=== PATIENT | female | born 1990 | race Caucasian/White ===

== ENCOUNTER 2017-10-29 22:23 | Observation (INO) | payer OTHER ==
[2017-10-29] MEDS ORDERED: ONDANSETRON 4 MG/2 ML VIAL ONE (22:59)
[2017-10-29] MEDS ORDERED: NA CHLORIDE 0.9% 1,000 ML ONE (22:59)
[2017-10-29 23:29] LABS: Absolute Lymphocytes (CBC) 0.6 K/uL (0.7-4.9); Absolute Monocytes 0.4 K/uL (0.1-1.3); Basophils % 0.1 % (0-1.3); Eosinophils % 0.7 % (0-4.4); Hematocrit 28.8 % (36.0-45.0); Lymphocytes % 6.9 % (15.3-44.8); MCH 29.9 pg (27.0-35.0); MCV 83.9 fL (80-100); MPV 7.1 fL (7.6-11.3); Monocytes % 4.8 % (3.3-12.3); RBC Red Blood Cell Count 3.43 M/uL (3.86-4.86)
[2017-10-29 23:44] LABS: Protime INR 1.17
[2017-10-29 23:48] LABS: Bicarbonate 20 mEq/L (21-31); Glucose Level 115 mg/dL (65-120); Lipase 28 U/L (22-51); Potassium 3.2 mEq/L (3.6-5.0); Sodium Level 133 mEq/L (135-145)
[2017-10-29 23:56] LABS: ALT/SGPT 15 IU/L (10-60); AST/SGOT 16 IU/L (10-42); Albumin 4.4 g/dL (3.2-5.5); Alkaline Phosphatase 44 IU/L (42-121); Amylase Level 30 U/L (28-100); BUN Blood Urea Nitrogen 14 mg/dL (6-20); Bilirubin Direct 0.2 mg/dL (0-0.2); Creatine Phosphokinase 47 IU/L (22-269); Magnesium 1.6 mg/dL (1.8-2.5); Protein, Total 7.3 g/dL (6.0-8.3)
[2017-10-30 00:16] LABS: Bilirubin Total 5.2 mg/dL (0.3-1.2)
[2017-10-30 00:17] LABS: Urine Blood NEGATIVE (NEG); Urine Glucose NEGATIVE (NEG); Urine Protein NEGATIVE (NEG); Urine Specific Gravity 1.015 (1.005-1.030); Urine pH 5.5 (5.0-7.0)
[2017-10-30 00:17] LABS: Urine Specific Gravity 1.015 (1.005-1.030)
[2017-10-30 00:39] LABS: Urine Bacteria <20 /HPF (<20); Urine Culture Reflex Order NOT NEEDED; Urine RBC <5 /HPF (NONE SEEN)
[2017-10-30 00:51] LABS: Blood Morphology Comment NOT SEEN (NOT SEEN); Platelet Estimate ADEQ; Urine White Blood Cell Casts OK
[2017-10-30] MEDS ORDERED: MAGNESIUM SULFATE 1 gm IVPB 1 GM/100 ML BAG IV ONE (00:54)
[2017-10-30] MEDS ORDERED: POTASSIUM 25 MEQ EFFERV TAB ONE (00:54)
[2017-10-30] MEDS ORDERED: ONDANSETRON 4 MG/2 ML VIAL ONE (01:07)
--- NOTE | 2017-10-30 02:30 | EDPHYS ---
Physician Documentation [facility] Name: Lala Dunbar Age: 27 yrs Sex: Female : 1990 Arrival Date: 10/29/2017 Time: 22:26 Bed 2 Private MD: Dex Hanleyama ED Physician Jeffery Duckworth HPI: 10/29 23:07 This 27 yrs old Female presents to ER via Ambulatory with complaints of cachorro Abdominal Pain, Fever, Nausea/Vomiting/Diarrhea, Palpitations, Shortness Of Breath. 23:07 The patient reports fever, not measured (subjective). Onset: The symptoms/episode cachorro began/occurred last week. Modifying factors: there are no obvious modifying factors. Associated signs and symptoms: Pertinent positives: abdominal pain, cough, nausea, shortness of breath, vomiting. Severity of symptoms: At their worst the symptoms were moderate in the emergency department the symptoms are unchanged. The patient has not experienced similar symptoms in the past. 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 - Social history:: Smoking status: Patient/guardian denies using tobacco. - Ebola Screening: : Patient negative for fever greater than or equal to 101.5 degrees Fahrenheit, and additional compatible Ebola Virus Disease symptoms Patient denies exposure to infectious person Patient denies travel to an Ebola-affected area in the 21 days before illness onset. - Family history:: not pertinent. ROS: 23:07 Constitutional: Negative for fever, chills, and weight loss, Eyes: Negative for injury, cachorro pain, redness, and discharge, ENT: Negative for injury, pain, and discharge, Neck: Negative for injury, pain, and swelling, Cardiovascular: Negative for chest pain, palpitations, and edema, Respiratory: Negative for shortness of breath, cough, wheezing, and pleuritic chest pain, Back: Negative for injury and pain, : Negative for injury, bleeding, discharge, and swelling, MS/Extremity: Negative for injury and deformity, Skin: Negative for injury, rash, and discoloration, Neuro: Negative for headache, weakness, numbness, tingling, and seizure, Psych: Negative for depression, anxiety, suicide ideation, homicidal ideation, and hallucinations, Allergy/Immunology: Negative for hives, rash, and allergies, Endocrine: Negative for neck swelling, polydipsia, polyuria, polyphagia, and marked weight changes, Hematologic/Lymphatic: Negative for swollen nodes, abnormal bleeding, and unusual bruising. 23:07 Abdomen/GI: Positive for abdominal pain, of the right upper quadrant, left upper quadrant and abdomen diffusely. Exam: 23:07 Constitutional: This is a well developed, well nourished patient who is awake, alert, cachorro and in no acute distress. Head/Face: Normocephalic, atraumatic. Eyes: Pupils equal round and reactive to light, extra-ocular motions intact. Lids and lashes normal. Conjunctiva and sclera are non-icteric and not injected. Cornea within normal limits. Periorbital areas with no swelling, redness, or edema. ENT: Nares patent. No nasal discharge, no septal abnormalities noted. Tympanic membranes are normal and external auditory canals are clear. Oropharynx with no redness, swelling, or masses, exudates, or evidence of obstruction, uvula midline. Mucous membranes moist. Neck: Trachea midline, no thyromegaly or masses palpated, and no cervical lymphadenopathy. Supple, full range of motion without nuchal rigidity, or vertebral point tenderness. No Meningismus. Chest/axilla: Normal chest wall appearance and motion. Nontender with no deformity. No lesions are appreciated. Cardiovascular: Regular rate and rhythm with a normal S1 and S2. No gallops, murmurs, or rubs. Normal PMI, no JVD. No pulse deficits. Abdomen/GI: Soft, non-tender, with normal bowel sounds. No distension or tympany. No guarding or rebound. No evidence of tenderness throughout. Back: No spinal tenderness. No costovertebral tenderness. Full range of motion. Pelvic Exam: Normal external genitalia. Speculum exam with closed cervical os, no discharge or bleeding noted. Bimanual exam with normal adnexa, no adnexal or cervical motion tenderness. Normal uterus. 10/30 00:53 Musculoskeletal/extremity: DVT Exam: No signs of deep vein thrombosis. no pain, no cachorro swelling, no tenderness, negative Homans' sign noted on exam, no appreciated bluish discoloration, no erythema, no increased warmth. Vital Signs: 10/29 22:43 Weight 63.5 kg (R); Height 5 ft. 4 in. (162.56 cm) (R); Pain 7/10; fc 22:44 BP 110 / 73; Pulse 104; Resp 24; Temp 98.9(O); Pulse Ox 100% on R/A; fc 23:00 BP 126 / 91; Pulse 101; Resp 20; Pulse Ox 99% ; bp 23:23 BP 111 / 70; Pulse 98; Resp 16; Pulse Ox 100% on R/A; rv 10/30 00:03 BP 105 / 67; Pulse 94; Resp 17; Pulse Ox 98% ; bp 01:00 BP 103 / 56; Pulse 90; Resp 16; Pulse Ox 99% on R/A; bp 02:00 BP 101 / 54; Pulse 87; Resp 17; Pulse Ox 98% ; bp 03:15 BP 103 / 57; Pulse 101; Resp 15; Pulse Ox 99% ; rv 10/29 22:43 Body Mass Index 24.03 (63.50 kg, 162.56 cm) fc MDM: 10/29 22:57 Patient medically screened. [facility] 23:09 Data reviewed: vital signs, nurses notes, lab test result(s), EKG, radiologic studies, [facility] plain films. 10/29 22:59 Order name: Amylase, Serum; Complete Time: 00:46 bp 10/29 22:59 Order name: Basic Metabolic Panel; Complete Time: 00:46 bp 10/29 22:59 Order name: CBC with Diff; Complete Time: 01:16 bp 10/29 22:59 Order name: Creatinine for Radiology; Complete Time: 00:46 bp 10/29 22:59 Order name: Hepatic Function; Complete Time: 00:46 bp 10/29 22:59 Order name: Lipase; Complete Time: 00:46 bp 10/29 22:59 Order name: Urine Microscopic Only; Complete Time: 00:46 bp 10/29 23:05 Order name: BNP; Complete Time: 00:46 cachorro 10/29 23:05 Order name: PT-INR; Complete Time: 00:46 cachorro 10/29 23:05 Order name: Ptt, Activated; Complete Time: 00:46 cachorro 10/29 23:05 Order name: Troponin (emerg Dept Use Only); Complete Time: 00:46 cachorro 10/29 22:59 Order name: CT Abd/Pelvis - W/Contrast 10/29 23:05 Order name: XRAY Chest (1 view) [facility] 10/29 23:06 Order name: Test, Serum; Complete Time: 00:46 cachorro 10/29 23:15 Order name: Type And Screen; Complete Time: 00:46 cc 10/29 23:23 Order name: D-Dimer; Complete Time: 00:46 EDMS 10/29 23:24 Order name: Creatine Phosphokinase; Complete Time: 00:46 EDMS 10/29 23:24 Order name: CKMB Creatine Kinase MB; Complete Time: 00:46 EDMS 10/29 23:24 Order name: Magnesium; Complete Time: 00:46 EDMS 10/29 23:57 Order name: Urine Dipstick--Ancillary (enter results); Complete Time: 00:46 ms 10/29 23:58 Order name: Urine --Ancillary (enter results); Complete Time: 00:46 ms 10/30 00:51 Order name: CBC Smear Scan; Complete Time: 01:16 EDMS 10/30 01:15 Order name: CT Chest For PE Angio [facility] 10/30 02:18 Order name: LDH [facility] 10/30 02:18 Order name: Uric Acid [facility] 10/30 03:22 Order name: ABO/RH no charge EDAZ 10/29 22:59 Order name: IV Saline Lock; Complete Time: 23:19 bp 10/29 22:59 Order name: Labs collected and sent; Complete Time: 23:19 bp 10/29 22:59 Order name: Urine Dipstick-Ancillary (obtain specimen); Complete Time: 00:05 bp 10/29 23:05 Order name: EKG; Complete Time: 23:06 cachorro 10/29 23:05 Order name: Cardiac monitoring; Complete Time: 23:17 cachorro 10/29 23:05 Order name: EKG - Nurse/Tech; Complete Time: 23:30 cachorro 10/29 23:05 Order name: O2 Per Protocol; Complete Time: 23:17 cachorro 10/29 23:05 Order name: O2 Sat Monitoring; Complete Time: 23:17 cachorro 10/30 02:34 Order name: CONS Physician Consult EDMS Administered Medications: 23:07 Drug: NS 0.9% 1000 ml Route: IV; Rate: 1 bolus; Site: right antecubital; bp 10/30 03:19 Follow up: IV Status: Completed infusion rv 10/29 23:07 Drug: Zofran 4 mg Route: IVP; Site: right antecubital; bp 23:32 Follow up: Response: Nausea is decreased bp 10/30 01:08 Drug: Zofran 4 mg Route: IVP; Site: right antecubital; bp 03:17 Follow up: Response: No adverse reaction rv 01:25 Drug: Magnesium Sulfate 1 grams Route: IVPB; Infused Over: 1 hrs; Site: right forearm; rv 03:17 Follow up: IV Status: Completed infusion rv 01:26 Drug: Potassium Effervescent Tablet 25 mEq Route: PO; rv 03:17 Follow up: Response: No adverse reaction rv Disposition: 10/30/17 02:29 Hospitalization ordered by Jacoby Spence for Observation. Preliminary diagnosis are Abdominal tenderness - mesenteric lymphadenopathy 10.4 cm, lymphoma, Splenomegaly, not elsewhere classified, Hypomagnesemia, Hypokalemia. - Bed requested for Telemetry/MedSurg (Inpatient). - Status is Observation. bp - Condition is Stable. - Problem is new. - Symptoms have improved. UTI on Admission? No Signatures: Dispatcher [employer] EDAZ Lisa Ramsey RN RN Jeffery Hines MD MD cha Chretien, Felicia RN RN Andriy Buckley RN RN bp Vicente, Ronaldo RN RN rv Corrections: (The following items were deleted from the chart) 10/29 23:05 22:59 Urine Test ordered. bp [facility] 23:23 23:06 CKMB+C.LAB.BRZ ordered. EDAZ EDMS 23:23 23:06 CREATINE PHOSPHOKINASE+C.LAB.BRZ ordered. EDAZ EDMS 23:23 23:06 MAGNESIUM+C.LAB.BRZ ordered. EDAZ EDMS 23:23 23:06 D-DIMER+COAG.LAB.BRZ ordered. EDAZ EDMS 10/30 02:45 02:29 Hospitalization Ordered by Jacoby Spence MD for Observation. Preliminary diagnosis is Abdominal tenderness - mesenteric lymphadenopathy 10.4 cm, lymphoma; Splenomegaly, not elsewhere classified; Hypomagnesemia; Hypokalemia. Bed requested for Telemetry/MedSurg (Inpatient). Status is Observation. Condition is Stable. Problem is new. Symptoms have improved. UTI on Admission? No. cachorro 04:07 02:45 10/30/2017 02:29 Hospitalization Ordered by Jacoby Spence MD for Observation. bp Preliminary diagnosis is Abdominal tenderness - mesenteric lymphadenopathy 10.4 cm, lymphoma; Splenomegaly, not elsewhere classified; Hypomagnesemia; Hypokalemia. Bed requested for Telemetry/MedSurg (Inpatient). Status is Observation. Condition is Stable. Problem is new. Symptoms have improved. UTI on Admission? No. mw
--- NOTE | 2017-10-30 02:30 | ER ---
Nurse's Notes [facility] Name: Lala Dunbar Age: 27 yrs Sex: Female : 1990 Arrival Date: 10/29/2017 Time: 22:26 Bed 2 Private MD: Ute Hanley Diagnosis: Abdominal tenderness-mesenteric lymphadenopathy 10.4 cm, lymphoma;Splenomegaly, not elsewhere classified;Hypomagnesemia;Hypokalemia Presentation: 10/29 22:39 Presenting complaint: Patient states: that she is having shortness of breath, nausea, fc vomiting and diarrhea.. Also having upper abd pain that she has had on and off x 2 weeks. Transition of care: patient was not received from another setting of care. Onset of symptoms was October 14, 2017. Risk Assessment: Do you want to hurt yourself or someone else? Patient reports no desire to harm self or others. Initial Sepsis Screen:. Care prior to arrival: None. 22:39 Method Of Arrival: Ambulatory 22:39 Acuity: CHANDLER 3 fc 10/30 03:15 Initial Sepsis Screen: Does the patient meet any 2 criteria? No. Patient's initial rv sepsis screen is negative. Does the patient have a suspected source of infection? No. Patient's initial sepsis screen is negative. Triage Assessment: 10/29 22:45 General: Appears uncomfortable, slender, well groomed, Behavior is calm, cooperative, fc appropriate for age. Pain: Complains of pain in right upper quadrant and left upper quadrant Quality of pain is described as aching, pressure, sharp, Pain began 2 weeks ago Is episodic. EENT: No deficits noted. Neuro: Level of Consciousness is awake, alert, obeys commands, Oriented to person, place, time, situation. Cardiovascular: No deficits noted. Respiratory: Reports shortness of breath at rest Airway is patent Respiratory effort is even, unlabored, Respiratory pattern is regular, symmetrical, Breath sounds are clear bilaterally. Onset: The symptoms/episode began/occurred gradually. GI: Abdomen is flat, Reports upper abdominal pain, diarrhea, nausea, vomiting. : No deficits noted. Derm: Skin is pink, warm \T\ dry. Musculoskeletal: Circulation, motion, and sensation intact. Capillary refill < 3 seconds, Range of motion: intact in all extremities. 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 - Social history:: Smoking status: Patient/guardian denies using tobacco. - Ebola Screening: : Patient negative for fever greater than or equal to 101.5 degrees Fahrenheit, and additional compatible Ebola Virus Disease symptoms Patient denies exposure to infectious person Patient denies travel to an Ebola-affected area in the 21 days before illness onset. - Family history:: not pertinent. Screenin:00 Abuse screen: Denies threats or abuse. Denies injuries from another. Nutritional bp screening: No deficits noted. Tuberculosis screening: No symptoms or risk factors identified. Fall Risk None identified. Assessment: 23:00 General: Appears in no apparent distress. uncomfortable, slender, Behavior is calm, bp cooperative, appropriate for age. Pain: Complains of pain in abdomen. Neuro: Level of Consciousness is awake, alert, obeys commands, Oriented to person, place, time, situation, Appropriate for age. Cardiovascular: Rhythm is sinus tachycardia. Respiratory: Airway is patent Respiratory effort is even, unlabored, Respiratory pattern is regular, symmetrical. GI: Bowel sounds present X 4 quads. Abd is soft X 4 quads Abdomen is tender to palpation X 4 quads. Reports diarrhea, nausea, vomiting. : No signs and/or symptoms were reported regarding the genitourinary system. EENT: No deficits noted. Derm: No deficits noted. Musculoskeletal: Circulation, motion, and sensation intact. Range of motion: intact in all extremities. 10/30 00:02 Reassessment: PO CONTRAST COMPLETED, CT PENDING. bp 01:08 Reassessment: PT TO CT WITH RELIEF DOCKING MASTER. bp 02:01 Reassessment: ALL CURRENT ORDERS COMPLETED, RESULTS AND DISPO PENDING. bp Vital Signs: 10/29 22:43 Weight 63.5 kg (R); Height 5 ft. 4 in. (162.56 cm) (R); Pain 7/10; fc 22:44 BP 110 / 73; Pulse 104; Resp 24; Temp 98.9(O); Pulse Ox 100% on R/A; fc 23:00 BP 126 / 91; Pulse 101; Resp 20; Pulse Ox 99% ; bp 23:23 BP 111 / 70; Pulse 98; Resp 16; Pulse Ox 100% on R/A; rv 06 00:03 BP 105 / 67; Pulse 94; Resp 17; Pulse Ox 98% ; bp 01:00 BP 103 / 56; Pulse 90; Resp 16; Pulse Ox 99% on R/A; bp 02:00 BP 101 / 54; Pulse 87; Resp 17; Pulse Ox 98% ; bp 03:15 BP 103 / 57; Pulse 101; Resp 15; Pulse Ox 99% ; rv 10/29 22:43 Body Mass Index 24.03 (63.50 kg, 162.56 cm) ED Course: 10/29 22:26 Patient arrived in ED. al2 22:27 Ute Hanley MD is Private Physician. al2 22:41 Triage completed. fc 22:43 Arm band placed on Patient placed in waiting room, Patient notified of wait time. fc 22:49 Andriy Rose, DANISHA is Primary Nurse. bp 22:57 Jeffery Duckworth MD is Attending Physician. cachorro 23:00 Patient has correct armband on for positive identification. Bed in low position. Call bp light in reach. Side rails up X2. Adult w/ patient. 23:04 Initial lab(s) drawn, by mn, sent to lab. Inserted saline lock: 20 gauge in right cc antecubital area, using aseptic technique. Blood collected. 23:14 X-ray completed. Portable x-ray completed in exam room. Patient tolerated procedure kw well. 23:15 XRAY Chest (1 view) In Process Unspecified. EDMS 23:31 EKG done, by ED staff, reviewed by Jeffery Duckworth MD. cc 10/30 00:16 Notified ED physician of a critical lab result(s). total bili of 5.2. fc 01:[address] via wheelchair. 01:27 CT Abd/Pelvis - W/Contrast In Process Unspecified. EDMS 02:27 Jacoby Spence MD is Hospitalizing Provider. cachorro 03:15 No provider procedures requiring assistance completed. Patient admitted, IV remains in rv place. Administered Medications: 10/29 23:07 Drug: NS 0.9% 1000 ml Route: IV; Rate: 1 bolus; Site: right antecubital; bp 10/30 03:19 Follow up: IV Status: Completed infusion rv 10/29 23:07 Drug: Zofran 4 mg Route: IVP; Site: right antecubital; bp 23:32 Follow up: Response: Nausea is decreased bp 10/30 01:08 Drug: Zofran 4 mg Route: IVP; Site: right antecubital; bp 03:17 Follow up: Response: No adverse reaction rv 01:25 Drug: Magnesium Sulfate 1 grams Route: IVPB; Infused Over: 1 hrs; Site: right forearm; rv 03:17 Follow up: IV Status: Completed infusion rv 01:26 Drug: Potassium Effervescent Tablet 25 mEq Route: PO; rv 03:17 Follow up: Response: No adverse reaction rv Outcome: 02:29 Decision to Hospitalize by Provider. cachorro 03:37 Admitted to Med/surg accompanied by tech, family with patient, via wheelchair, room rv 202, with chart, Report called to ANISHA RAMAN 03:37 Condition: stable 03:37 Instructed on the need for admit. 04:07 Patient left the ED. bp Signatures: Dispatcher [employer] EDMS Jeffery Duckworth MD MD cha Jones, Susan sj Chretien, Felicia, RN RN fc Whitley, Kimberlee kw Christian, Chelsea cc Peltier, Brian, RN RN bp Love, Angelica al2 Vicente, Ronaldo, RN RN rv
[2017-10-30 02:32] LABS: Uric Acid 5.3 mg/dL (2.6-8.0)
[2017-10-30] MEDS ORDERED: ACETAMINOPHEN 500 MG TAB PO PRN (02:44)
[2017-10-30] MEDS ORDERED: ONDANSETRON 4 MG/2 ML VIAL IV PRN (02:44)
[2017-10-30] MEDS ORDERED: Morphine 2 MG/2 ML SYR IV PRN (03:21)
[2017-10-30] MEDS: NA CHLORIDE 0.9% 1,000 ML IV SCH ×2 (04:00→16:09)
--- NOTE | 2017-10-30 07:04 | RAD REPORT ---
EXAM DESCRIPTION: CT - Abdomen Pelvis W Contrast - 10/30/2017 6:00 am CLINICAL HISTORY: Abdominal pain, vomiting A preliminary written report was provided at the time of the study, and the report was reviewed prio r to final dictation. COMPARISON: None. TECHNIQUE: Biphasic, helical CT imaging of the abdomen and pelvis was performed following 100 ml non -ionic IV contrast. Oral contrast was given. All CT scans are performed using dose optimization technique as appropriate and may include automated exposure control or mA/KV adjustment according to patient size. FINDINGS: No suspicious findings in the lung bases. Liver is upper normal in size with no focal liver lesion identified. No primary pancreatic process id entifiable. There is splenomegaly to 18 cm craniocaudal dimension. No infarction or focal splenic abn ormality seen. Gallbladder and biliary tree are also without suspicious finding. Symmetric renal function is seen with no hydronephrosis or suspicious renal mass. No pyelonephritis o r acute renal parenchymal process. No urinary bladder abnormality. Uterus shows no suspicious finding s. No left ovarian abnormality. Right ovary contains a 2.5 centimeter cyst. Small quantity of free fl uid in the cul-de-sac is within physiologic limits. A wrapped shirt or leaking ovarian cyst could be an additional possible source. Stomach is well filled by oral contrast. There is a soft tissue attenuation focus in the antrum and d uodenal bulb region is believed to be ingested food rather than a gastric mass. Small bowel is well o pacified with no focal abnormality seen. In the left mid abdomen along the inferior margin of the spl een there is a confluent soft tissue collection suspicious for lymphadenopathy. The well opacified sm all bowel would indicate that this is not a non-opacified collection of small bowel loops. The patien t has additional small mesenteric lymph nodes. No inguinal or pelvic lymphadenopathy. No free air, pneumatosis or focal inflammatory stranding. No hernia or omental thickening. No adre nal abnormality. No suspicious bony findings. IMPRESSION: Splenomegaly to 18 cm with suspected confluent left mid abdomen lymphadenopathy. Additio nal small mesenteric lymph nodes are present. Findings are concerning for lymphoma. Soft tissue filling defect near the gastric antrum is probably ingested food rather than a gastric ma ss. Gastric anaya do not appear to be thickened.
--- NOTE | 2017-10-30 07:04 | P.HP ---
Certification for Inpatient Patient admitted to: Observation With expected LOS: <2 Midnights Patient will require the following post-hospital care: None Practitioner: I am a practitioner with admitting privileges, knowledge of patient current condition, hospital course, and medical plan of care. Services: Services provided to patient in accordance with Admission requirements found in Title 42 Section 412.3 of the Code of Federal Regulations Patient History Date of Service: 10/30/17 Reason for admission: Intractable nausea and vomiting; abdominal pain History of Present Illness: Patient is a 27-year-old female with a history of hereditary spherocytosis who presents to the hospital with intractable nausea and vomiting along with abdominal discomfort. Patient states she tends to have some nausea and vomiting occasionally. After 24 hr her symptoms tend to resolve. However, her nausea and vomiting continued for 48 hr. Her brought her into the emergency room for evaluation. Patient was recently diagnosed with hereditary spherocytosis by Dr. Pfeiffer. Patient had always been told she had iron deficiency anemia and was always on iron supplementation. However, after further testing it was found that she had hereditary spherocytosis. Iron supplementation was discontinued. Patient has been following up with abdominal ultrasound which revealed some splenomegaly and hepatomegaly. No other abnormality was seen. Patient had a CT scan done last night. This revealed an enlarged abdominal lymph node. Patient has had no fever, no night sweats, and no weight loss. Patient's CBC is fairly normal. Patient will be admitted to the hospital for further workup. Patient may need a dedicated CT of the neck and chest, but will discuss this with Oncology to see if this needs to be done or if patient can have outpatient workup once her nausea and vomiting resolves. Allergies Latex, Natural Rubber Allergy (Verified 10/30/17 03:16) Rash Home Medications: NK [No Home Meds] 10/30/17 - Past Medical/Surgical History Has patient received pneumonia vaccine in the past: Yes Diabetic: No -: Hereditary Spherocytosis -: Adenoidectomy - Family History Father History Unknown: Yes Mother Notes: mom is healthy - Social History Smoking Status: Never smoker Alcohol use: Yes CD- Drugs: No Caffeine use: Yes Place of Residence: Home Review of Systems 10-point ROS is otherwise unremarkable Physical Examination - Vital Signs Temperature: 98 F Blood Pressure: 100/73 Pulse: 101 Respirations: 18 Pulse Ox (%): 99 - Physical Exam General: Alert, In no apparent distress, Oriented x3 HEENT: Atraumatic, PERRLA, Mucous membr. moist/pink, EOMI, Sclerae nonicteric Neck: Supple, 2+ carotid pulse no bruit, No LAD, Without JVD or thyroid abnormality Respiratory: Clear to auscultation bilaterally, Normal air movement Cardiovascular: Regular rate/rhythm, Normal S1 S2, No murmurs Gastrointestinal: Normal bowel sounds, Soft and benign, Non-distended, No tenderness Musculoskeletal: No clubbing, No swelling, No tenderness Integumentary: No rashes Neurological: Normal gait, Normal speech, Normal strength at 5/5 x4 extr, Normal tone, Sensation intact, Cranial nerves 3-12 intact, Normal affect Lymphatics: Other (Anterior cervical lymphadenopathy) - Studies Laboratory Data (last 24 hrs) 10/29/17 23:04: Uric Acid 5.3 10/29/17 23:04: PT 13.8 H, INR 1.17, APTT 27.1 10/29/17 23:04: Magnesium Cancelled 10/29/17 23:04: B-Natriuretic Peptide 18 10/29/17 23:04: WBC 8.0, Hgb 10.3 L, Hct 28.8 L, Plt Count 256 10/29/17 23:04: Sodium 133 L, Potassium 3.2 L, BUN 14, Creatinine 0.52, Glucose 115, Magnesium 1.6 L, Total Bilirubin 5.2 H*, AST 16, ALT 15, Alkaline Phosphatase 44, Amylase 30, Lipase 28 10/29/17 22:59: Creatinine 0.48 Assessment & Plan - Problems (Diagnosis) (1) Intra-abdominal lymphadenopathy Current Visit: Yes Status: Acute (2) Intractable nausea and vomiting Current Visit: Yes Status: Acute (3) Hereditary spherocytosis Current Visit: Yes Status: Acute (4) Abdominal pain Current Visit: Yes Status: Acute (5) Hepatomegaly with splenomegaly, not elsewhere classified Current Visit: Yes Status: Acute - Plan Plan: 1. IV hydration 2. Monitor labs 3. Hematology consultation 4. Discuss with Oncology regarding further workup of intra-abdominal lymphadenopathy(possible CT scan or lymph node biopsy) 5. Pain control 6. Anti emetics 7. GI and DVT prophylax Discharge Plan: Home Plan to discharge in: 24 Hours - Advance Directives Does patient have a Living Will: No Does patient have a Durable POA for Healthcare: No - Code Status/Comfort Care Code Status Assessed: Yes Code Status: Full Code Critical Care: No Time Spent Managing PTS Care (In Minutes): 50
[2017-10-30] MEDS ORDERED: MORPHINE 4 MG/ML SYR IV PRN (07:29)
--- NOTE | 2017-10-30 08:31 | RAD REPORT ---
EXAM DESCRIPTION: RAD - Chest Single View - 10/29/2017 11:16 pm CLINICAL HISTORY: Shortness of breath COMPARISON: February 2014 TECHNIQUE: AP portable chest image was obtained 2305 hours . FINDINGS: Lungs are clear. Heart and vasculature are normal. No measurable pleural effusion and no p neumothorax. No gross bony abnormality seen. No acute aortic findings suspected. IMPRESSION: No acute cardiopulmonary process. No significant interval change.
--- NOTE | 2017-10-30 16:07 | P.DS ---
Admission Date: 10/30/17 Discharge Date: 10/30/17 Disposition: ROUTINE DISCHARGE Discharge Condition: GOOD Reason for Admission: Intractable nausea and vomiting; abdominal pain Brief History of Present Illness: By Dr Spence Patient is a 27-year-old female with a history of hereditary spherocytosis who presents to the hospital with intractable nausea and vomiting along with abdominal discomfort. Patient states she tends to have some nausea and vomiting occasionally. After 24 hr her symptoms tend to resolve. However, her nausea and vomiting continued for 48 hr. Her brought her into the emergency room for evaluation. Patient was recently diagnosed with hereditary spherocytosis by Dr. Pfeiffer. Patient had always been told she had iron deficiency anemia and was always on iron supplementation. However, after further testing it was found that she had hereditary spherocytosis. Iron supplementation was discontinued. Patient has been following up with abdominal ultrasound which revealed some splenomegaly and hepatomegaly. No other abnormality was seen. Patient had a CT scan done last night. This revealed an enlarged abdominal lymph node. Patient has had no fever, no night sweats, and no weight loss. Patient's CBC is fairly normal. Patient will be admitted to the hospital for further workup. Patient may need a dedicated CT of the neck and chest, but will discuss this with Oncology to see if this needs to be done or if patient can have outpatient workup once her nausea and vomiting resolves. Hospital Course: Ms Dunbar was admitted to the hospital due to intractable nausea and vomiting associated with abdominal pain. She has history of hereditary spherocytosis. CT abd/pelvis showed Splenomegaly to 18 cm with suspected confluent left mid abdomen lymphadenopathy. Additional small mesenteric lymph nodes are present, finding are concerning for lymphoma. Dr Pfeiffer has recommended to have a GI evaluation, that could be done as outpatient. Ms Dunbar already resolved her symptoms and she is able to tolerate oral intake. Dr Pfeiffer is agree to discharge the patient home. She will be discharge in stable condition. Vital Signs/Physical Exam: Temp Pulse Resp BP Pulse Ox 97.3 F 86 20 101/56 L 99 10/30/17 12:00 10/30/17 12:10/30/17 12:00 10/30/17 12:10/30/17 12:00 General: Alert, In no apparent distress HEENT: Atraumatic, PERRLA, EOMI Neck: Supple, JVD not distended Respiratory: Clear to auscultation bilaterally, Normal air movement Cardiovascular: Regular rate/rhythm, Normal S1 S2 Gastrointestinal: Normal bowel sounds, No tenderness Musculoskeletal: No tenderness Integumentary: No rashes Neurological: Normal speech, Normal tone, Normal affect Lymphatics: No axilla or inguinal lymphadenopathy Laboratory Data at Discharge: WBC 8.0 K/uL (4.3-10.9) 10/29/17 23:04 Hgb 10.3 g/dL (12.0-15.0) L 10/29/17 23:04 Hct 28.8 % (36.0-45.0) L 10/29/17 23:04 Plt Count 256 K/uL (152-406) 10/29/17 23:04 PT 13.8 SECONDS (9.5-12.5) H 10/29/17 23:04 INR 1.17 10/29/17 23:04 APTT 27.1 SECONDS (24.3-36.9) 10/29/17 23:04 Sodium 133 mEq/L (135-145) L 10/29/17 23:04 Potassium 3.2 mEq/L (3.6-5.0) L 10/29/17 23:04 BUN 14 mg/dL (6-20) 10/29/17 23:04 Creatinine 0.52 mg/dL (0.44-1.00) 10/29/17 23:04 Glucose 115 mg/dL (65-120) 10/29/17 23:04 Uric Acid 5.3 mg/dL (2.6-8.0) 10/29/17 23:04 Magnesium 1.6 mg/dL (1.8-2.5) L 10/29/17 23:04 Total Bilirubin 5.2 mg/dL (0.3-1.2) H* 10/29/17 23:04 AST 16 IU/L (10-42) 10/29/17 23:04 ALT 15 IU/L (10-60) 10/29/17 23:04 Alkaline Phosphatase 44 IU/L (42-121) 10/29/17 23:04 B-Natriuretic Peptide 18 pg/ml (<=100) 10/29/17 23:04 Amylase 30 U/L (28-100) 10/29/17 23:04 Lipase 28 U/L (22-51) 10/29/17 23:04 Home Medications: NK [No Home Meds] 10/30/17 Diet: Regular Activity: Ad yvrose Followup: Ute Hanley MD [Primary Care Provider] - 1 Week Yadiel Mendez MD [ACTIVE - CAN ADMIT] - 1 Week Time spent managing pt's care (in minutes): 40
--- NOTE | 2017-10-31 07:24 | EKG ---
Test Date: 2017-10-29 Test Time: 23:25:14 Porcelain Buildup Assistant: TIERRA MEASUREMENT RESULTS: Intervals: Rate: 95 MS: 164 QRSD: 88 QT: 348 QTc: 437 [place]: P: 70 MS: 164 QRS: 71 T: 50 INTERPRETIVE STATEMENTS: Normal sinus rhythm Normal ECG No previous ECG available for comparison Electronically Signed On 10-31-17 07:20:10 CDT by Carson Moses
== END 2017-10-30 18:06 | disposition home or self-care (01) ==
LOC: ER 22:23 → ERHOLD 10-30 02:30 → 2ND 10-30 03:21
PROVIDERS: ADMIT Hospitalist; ATTEND Hospitalist
DX: R11.2 Nausea with vomiting, unspecified (principal); R10.9 Unspecified abdominal pain; D58.0 Hereditary spherocytosis; R59.0 Localized enlarged lymph nodes; Z91.040 Latex allergy status
CPT/HCPCS: 36415; 71045; 74177; 80048; 80076; 81003; 81015; 81025; 82150; 82550; 82553; 83615; 83690; 83735; 83880; 84484; 84550; 84703; 85025; 85379; 85610; 85730; 86850; 86900; 86901; 93005; 96361; 96365; 96366; 96375; 99285; G0378; J2405; J3475; J7030; Q9967

== ENCOUNTER 2018-02-06 01:20 | Observation (INO) | payer OTHER ==
[2018-02-06] MEDS ORDERED: ONDANSETRON 4 MG/2 ML VIAL ONE ×2 (01:57→04:40)
[2018-02-06] MEDS ORDERED: NA CHLORIDE 0.9% 1,000 ML ONE ×2 (01:57→05:13)
[2018-02-06 02:16] LABS: Absolute Lymphocytes (CBC) 0.8 K/uL (0.7-4.9); Absolute Monocytes 0.6 K/uL (0.1-1.3); Absolute Neutrophil 8.6 K/uL (1.8-8.0); Basophils % 0.1 % (0-1.3); Eosinophils % 1.4 % (0-4.4); Hematocrit 29.1 % (36.0-45.0); Lymphocytes % 7.5 % (15.3-44.8); MCH 31.1 pg (27.0-35.0); MCV 84.1 fL (80-100); Monocytes % 5.6 % (3.3-12.3); RBC Red Blood Cell Count 3.46 M/uL (3.86-4.86)
[2018-02-06] MEDS ORDERED: MORPHINE 4 MG/ML SYR ONE (02:16)
[2018-02-06 02:35] LABS: ALT/SGPT 19 U/L (12-78); AST/SGOT 14 U/L (15-37); Albumin 4.5 g/dL (3.4-5.0); Alkaline Phosphatase 52 U/L (45-117); Amylase Level 27 U/L (25-115); BUN Blood Urea Nitrogen 16 mg/dL (7-18); Bicarbonate 25 mmol/L (21-32); Bilirubin Direct 0.3 mg/dL (0-0.2); Glucose Level 111 mg/dL (74-106); Lipase 138 U/L (73-393); Potassium 3.5 mmol/L (3.5-5.1); Protein, Total 7.9 g/dL (6.4-8.2); Sodium Level 140 mmol/L (136-145)
[2018-02-06 02:43] LABS: Urine Blood NEGATIVE (NEG); Urine Glucose NEGATIVE (NEG); Urine Protein TRACE (NEG); Urine pH 6.5 (5.0-7.0)
[2018-02-06 03:03] LABS: Urine Bacteria 20-50 /HPF (<20); Urine Culture Reflex Order REFLEXED; Urine Mucus LIGHT /HPF (NONE SEEN); Urine RBC <5 /HPF (NONE SEEN)
[2018-02-06 03:52] LABS: Blood Morphology Comment NOT SEEN (NOT SEEN); Platelet Estimate ADEQ; Urine White Blood Cell Casts OK
[2018-02-06] MEDS ORDERED: METOCLOPRAMIDE 10 MG/2mL INJ ONE (05:13)
--- NOTE | 2018-02-06 05:21 | EDPHYS ---
Physician Documentation [facility] Name: Lala Dunbar Age: 27 yrs Sex: Female : 1990 Arrival Date: 02/06/2018 Time: 01:21 Bed 15 Private MD: ED Physician Geovanni Hoffman HPI: 02/06 04:39 This 27 yrs old Female presents to ER via Ambulatory with complaints of kdr Nausea, Abdominal Pain, General Weakness. 04:39 The patient presents to the emergency department with nausea, that is mild, that is kdr moderate, vomiting, that is intermittent, abdominal pain, of the left upper quadrant. Onset: The symptoms/episode began/occurred suddenly, just prior to arrival. Possible causes: unknown, Concerned that it may be her spleen. The symptoms are aggravated by movement, pressure, The symptoms are alleviated by nothing. Associated signs and symptoms: Pertinent positives: abdominal pain, nausea, vomiting, Pertinent negatives: anorexia, belching, constipation, diarrhea. Severity of symptoms: At their worst the symptoms were mild moderate just prior to arrival, in the emergency department the symptoms are unchanged. The patient has experienced similar episodes in the past, a few times. The patient has not recently seen a physician. 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 - Social history:: Smoking status: Patient/guardian denies using tobacco. - Ebola Screening: : No symptoms or risks identified at this time. ROS: 04:39 Constitutional: Negative for fever, chills, and weight loss, Eyes: Negative for injury, kdr pain, redness, and discharge, Neck: Negative for injury, pain, and swelling, Cardiovascular: Negative for chest pain, palpitations, and edema, Respiratory: Negative for shortness of breath, cough, wheezing, and pleuritic chest pain, Back: Negative for injury and pain, : Negative for injury, bleeding, discharge, and swelling, MS/Extremity: Negative for injury and deformity, Skin: Negative for injury, rash, and discoloration, Neuro: Negative for headache, weakness, numbness, tingling, and seizure activity. Psych: Negative for depression, anxiety, suicide ideation, homicidal ideation, and hallucinations, Allergy/Immunology: Negative for hives, rash, and allergies, Endocrine: Negative for neck swelling, polydipsia, polyuria, polyphagia, and marked weight changes, Hematologic/Lymphatic: Negative for swollen nodes, abnormal bleeding, and unusual bruising. 04:39 Abdomen/GI: Positive for abdominal pain, nausea and vomiting, Negative for diarrhea, constipation, abdominal distension, anorexia, dysphagia, hematemesis, black/tarry stool, rectal pain, rectal bleeding, bowel incontinence. Exam: 04:39 Constitutional: This is a well developed, well nourished patient who is awake, alert, kdr and in moderate distress. Head/Face: Normocephalic, atraumatic. Eyes: Pupils equal round and reactive to light, extra-ocular motions intact. Lids and lashes normal. Conjunctiva and sclera are non-icteric and not injected. Cornea within normal limits. Periorbital areas with no swelling, redness, or edema. Neck: Trachea midline, no thyromegaly or masses palpated, and no cervical lymphadenopathy. Supple, full range of motion without nuchal rigidity, or vertebral point tenderness. No Meningismus. Chest/axilla: Normal chest wall appearance and motion. Nontender with no deformity. No lesions are appreciated. Cardiovascular: Regular rate and rhythm with a normal S1 and S2. No gallops, murmurs, or rubs. Normal PMI, no JVD. No pulse deficits. Respiratory: Lungs have equal breath sounds bilaterally, clear to auscultation and percussion. No rales, rhonchi or wheezes noted. No increased work of breathing, no retractions or nasal flaring. Back: No spinal tenderness. No costovertebral tenderness. Full range of motion. Skin: Warm, dry with normal turgor. Normal color with no rashes, no lesions, and no evidence of cellulitis. MS/ Extremity: Pulses equal, no cyanosis. Neurovascular intact. Full, normal range of motion. Neuro: Awake and alert, GCS 15, oriented to person, place, time, and situation. Cranial nerves II-XII grossly intact. Motor strength 5/5 in all extremities. Sensory grossly intact. Cerebellar exam normal. Normal gait. Psych: Awake, alert, with orientation to person, place and time. Behavior, mood, and affect are within normal limits. 04:39 Abdomen/GI: Inspection: abdomen appears normal, Bowel sounds: diminished, in all quadrants, Palpation: soft, mild abdominal tenderness, in the left upper quadrant, mass, is not appreciated, rebound tenderness, is not appreciated, voluntary guarding, is not appreciated, involuntary guarding, is not appreciated. Vital Signs: 01:37 BP 128 / 76; Pulse 103; Resp 22; Temp 97.9; Pulse Ox 100% on R/A; Weight 63.5 kg (R); ak1 Height 5 ft. 5 in. (165.10 cm) (R); Pain 7/10; 02:35 BP 112 / 74; Pulse 95; Resp 16; Pulse Ox 98% on R/A; Pain 2/10; ak1 03:30 BP 107 / 68; Pulse 90; Resp 18; Pulse Ox 99% on R/A; oe 04:33 BP 112 / 61; Pulse 102; Resp 18; Pulse Ox 100% on R/A; Pain 0/10; oe 01:37 Body Mass Index 23.30 (63.50 kg, 165.10 cm) ak1 MDM: 04:39 Data reviewed: vital signs, nurses notes, lab test result(s), radiologic studies. kdr Counseling: I had a detailed discussion with the patient and/or guardian regarding: the historical points, exam findings, and any diagnostic results supporting the discharge/admit diagnosis, lab results, the need for outpatient follow up. 05:19 Patient medically screened. kdr 02/06 01:44 Order name: Amylase, Serum ak1 02/06 01:44 Order name: Basic Metabolic Panel ak1 02/06 01:44 Order name: CBC with Diff; Complete Time: 04:37 ak1 02/06 01:44 Order name: Creatinine for Radiology; Complete Time: 03:44 ak1 02/06 01:44 Order name: Hepatic Function; Complete Time: 03:44 ak1 02/06 01:44 Order name: Lipase; Complete Time: 03:44 ak1 02/06 01:44 Order name: Urine Microscopic Only; Complete Time: 03:44 ak1 02/06 01:44 Order name: Amylase Level; Complete Time: 03:44 EDMS 02/06 01:44 Order name: Basic Metabolic Panel; Complete Time: 03:44 EDMS 02/06 01:48 Order name: Type And Screen ak1 02/06 01:48 Order name: Type and Screen; Complete Time: 03:44 EDMS 02/06 02:24 Order name: Urine Dipstick--Ancillary (enter results); Complete Time: 03:44 2 02/06 02:24 Order name: Urine --Ancillary (enter results); Complete Time: 03:44 2 02/06 03:04 Order name: Urine Culture EDCT 02/06 01:44 Order name: IV Saline Lock; Complete Time: 01:57 ak1 02/06 01:44 Order name: Labs collected and sent; Complete Time: 01:57 fl1 02/06 01:44 Order name: Urine Dipstick-Ancillary (obtain specimen); Complete Time: 02:16 ak1 02/06 02:03 Order name: CT Abd/Pelvis - W/Contrast kdr 02/06 03:52 Order name: CBC Smear Scan; Complete Time: 04:37 EDMS Administered Medications: 01:53 Drug: NS 0.9% 1000 ml Route: IV; Rate: 1 bolus; Site: right antecubital; ak1 03:00 Follow up: IV Status: Completed infusion ak1 01:54 Drug: Zofran 4 mg Route: IVP; Site: right antecubital; ak1 03:24 Follow up: Response: No adverse reaction ak1 02:16 Drug: morphine 4 mg Route: IVP; Site: right antecubital; ak1 03:24 Follow up: Response: No adverse reaction ak1 04:38 Drug: Zofran 4 mg Route: IVP; Site: right antecubital; ak1 04:59 Follow up: Response: Nausea unchanged ak1 05:14 Drug: Reglan 10 mg Route: IVP; Site: right antecubital; ak1 05:14 Drug: NS 0.9% 1000 ml Route: IV; Rate: 1 bolus; Site: right antecubital; ak1 Disposition: 02/06/18 05:19 Hospitalization ordered by Jacoby Spence for Observation. Preliminary diagnosis are Cyclical vomiting, intractable, Abdominal and pelvic pain. - Bed requested for Telemetry/MedSurg (observation). - Status is Observation. hj - Condition is Fair. - Problem is new. - Symptoms have improved. UTI on Admission? No Signatures: Dispatcher [employer] EDMS Lisa Ramsey RN RN Geovanni Hoffman MD MD kdr Krenek, Amber RN RN ak1 Marc Richardson RN RN hj Corrections: (The following items were deleted from the chart) 05:27 05:19 Hospitalization Ordered by Jacoby Spence MD for Observation. Preliminary mw diagnosis is Cyclical vomiting, intractable; Abdominal and pelvic pain. Bed requested for Telemetry/MedSurg (observation). Status is Observation. Condition is Fair. Problem is new. Symptoms have improved. UTI on Admission? No. kdr 08:56 05:27 02/06/2018 05:19 Hospitalization Ordered by Jacoby Spence MD for Observation. Preliminary diagnosis is Cyclical vomiting, intractable; Abdominal and pelvic pain. Bed requested for Telemetry/MedSurg (observation). Status is Observation. Condition is Fair. Problem is new. Symptoms have improved. UTI on Admission? No. mw
--- NOTE | 2018-02-06 05:21 | ER ---
Nurse's Notes [facility] Name: Lala Dunbar Age: 27 yrs Sex: Female : 1990 Arrival Date: 02/06/2018 Time: 01:21 Bed 15 Private MD: Diagnosis: Cyclical vomiting, intractable;Abdominal and pelvic pain Presentation: 02/06 01:34 Presenting complaint: Patient states: dizziness X2 days with sudden onset of N/V ak1 tonight. pt is treated at [facility] for enlarged spleen and "blood condition". Transition of care: patient was not received from another setting of care. Onset of symptoms was February 06, 2018. Risk Assessment: Do you want to hurt yourself or someone else? Patient reports no desire to harm self or others. Initial Sepsis Screen: Does the patient meet any 2 criteria? No. Patient's initial sepsis screen is negative. Does the patient have a suspected source of infection? No. Patient's initial sepsis screen is negative. Note pt given phenergen by [facility], stated it makes her dizzy and sleepy so she does not take it. Care prior to arrival: None. 01:34 Method Of Arrival: Ambulatory ak1 01:34 Acuity: CHANDLER 3 ak1 Triage Assessment: 01:37 General: Appears uncomfortable, Behavior is cooperative, anxious. Pain: Complains of ak1 pain in abdomen. EENT: No signs and/or symptoms were reported regarding the EENT system. Neuro: Level of Consciousness is awake, alert, obeys commands, Oriented to person, place, time, situation, Distribution Superintendent are equal bilaterally Moves all extremities. Gait is steady, Speech is normal, Facial symmetry appears normal, Pupils are PERRLA. Cardiovascular: No deficits noted. Respiratory: No deficits noted. GI: Abdomen is flat, Reports lower abdominal pain, upper abdominal pain, nausea, vomiting. : Derm: Musculoskeletal: No signs and/or symptoms reported regarding the musculoskeletal system. HOSPITAL UNIT COORDINATOR: 01:37 LMP 01/24/2018 ak1 Historical: - Allergies: 01:37 Latex, Natural Rubber; ak1 - Home Meds: 01:37 None [Active]; ak1 - PMHx: 01:37 heritary sphirocytosis; enlarged spleen; ak1 - PSHx: 01:37 Adenoids; ak1 - Immunization history:: Adult Immunizations unknown. - Social history:: Smoking status: Patient/guardian denies using tobacco. - Ebola Screening: : No symptoms or risks identified at this time. Screenin:39 Abuse screen: Denies threats or abuse. Denies injuries from another. Nutritional ak1 screening: No deficits noted. Tuberculosis screening: No symptoms or risk factors identified. Fall Risk None identified. Assessment: 01:58 Reassessment: Patient appears in no apparent distress at this time. No changes from ak1 previously documented assessment. see triage assessment. 02:34 Reassessment: Patient appears in no apparent distress at this time. Patient is alert, ak1 oriented x 3, equal unlabored respirations, skin warm/dry/pink. Patient states feeling better. Patient states symptoms have improved. GI: pt reports relief after pain medication and zofran. 04:15 Reassessment: Patient appears in no apparent distress at this time. Patient is alert, ak1 oriented x 3, equal unlabored respirations, skin warm/dry/pink. pt informed of wait for CT results. will continue to monitor. Patient states feeling better. Patient states symptoms have improved. 04:36 Reassessment: pt up to restroom and began to feel nauseated, ERP notified and new ak1 verbal orders given for zofran IVP. 05:16 Reassessment: pt remained nauseated, ERP notified, new orders given. ERP to the bedside ak1 to update pt and family. Vital Signs: 01:37 BP 128 / 76; Pulse 103; Resp 22; Temp 97.9; Pulse Ox 100% on R/A; Weight 63.5 kg (R); ak1 Height 5 ft. 5 in. (165.10 cm) (R); Pain 7/10; 02:35 BP 112 / 74; Pulse 95; Resp 16; Pulse Ox 98% on R/A; Pain 2/10; ak1 03:30 BP 107 / 68; Pulse 90; Resp 18; Pulse Ox 99% on R/A; oe 04:33 BP 112 / 61; Pulse 102; Resp 18; Pulse Ox 100% on R/A; Pain 0/10; oe 01:37 Body Mass Index 23.30 (63.50 kg, 165.10 cm) ak1 ED Course: 01:21 Patient arrived in ED. es 01:34 Nadya Rodgers, RN is Primary Nurse. ak1 01:36 Triage completed. ak1 01:37 Arm band placed on Patient placed in an exam room, on a stretcher, on pulse oximetry, ak1 Patient notified of wait time. 01:39 Patient has correct armband on for positive identification. Bed in low position. Call ak1 light in reach. Side rails up X 1. Adult w/ patient. Pulse ox on. NIBP on. 01:58 Inserted saline lock: 20 gauge in right antecubital area, using aseptic technique. ak1 ,using aseptic technique. placed by Henrique Blood collected. 02:02 Geovanni Hoffman MD is Attending Physician. kdr 02:09 Radiology exam delayed due to lab results not completed at this time. (HCG) jg6 (BUN/Creatinine) test not completed at this time. 02:[address] via stretcher. eh 02:56 CT Abd/Pelvis - W/Contrast In Process Unspecified. EDMS 02:59 CT completed. Patient tolerated procedure well. Patient moved back from CT. eh 05:19 Jacoby Spence MD is Hospitalizing Provider. kdr 08:53 No provider procedures requiring assistance completed. Patient admitted, IV remains in hj place. intact. Administered Medications: 01:53 Drug: NS 0.9% 1000 ml Route: IV; Rate: 1 bolus; Site: right antecubital; ak1 03:00 Follow up: IV Status: Completed infusion ak1 01:54 Drug: Zofran 4 mg Route: IVP; Site: right antecubital; ak1 03:24 Follow up: Response: No adverse reaction ak1 02:16 Drug: morphine 4 mg Route: IVP; Site: right antecubital; ak1 03:24 Follow up: Response: No adverse reaction ak1 04:38 Drug: Zofran 4 mg Route: IVP; Site: right antecubital; ak1 04:59 Follow up: Response: Nausea unchanged ak1 05:14 Drug: Reglan 10 mg Route: IVP; Site: right antecubital; ak1 05:14 Drug: NS 0.9% 1000 ml Route: IV; Rate: 1 bolus; Site: right antecubital; ak1 Outcome: 05:19 Decision to Hospitalize by Provider. kdr 08:54 Admitted to Med/surg accompanied by nurse, family with patient, via wheelchair, room hj 209, with chart, Report called to DANISHA Mcgill 08:54 Condition: stable 08:54 Instructed on the need for admit, Demonstrated understanding of instructions. 08:56 Patient left the ED. Signatures: Dispatcher [employer] Geovanni Zayas MD MD kdr Salyer, Edna es Hagler, Ervin eh Krenek, Amber RN RN ak1 Marc Richardson RN RN hj Espinosa, Madelyn Yeager6 Corrections: (The following items were deleted from the chart) 01:58 01:58 Inserted saline lock: 20 gauge in right antecubital area, using aseptic ak1 technique. Blood collected. ak1
[2018-02-06] MEDS ORDERED: ONDANSETRON 4 MG/2 ML VIAL IV PRN (05:29)
[2018-02-06] MEDS ORDERED: MORPHINE 2 MG/ML SYR IV PRN (05:29)
[2018-02-06] MEDS ORDERED: ACETAMINOPHEN 500 MG TAB PO PRN (05:29)
[2018-02-06] MEDS ORDERED: LORazepam 2 MG/ML VIAL IV PRN (05:29)
[2018-02-06] MEDS ORDERED: NA CHLORIDE 0.9% 1,000 ML IV SCH (06:00)
[2018-02-06] MEDS ORDERED: PROMETHAZINE 25 MG TABLET ONE (08:43)
--- NOTE | 2018-02-06 10:44 | RAD REPORT ---
EXAM DESCRIPTION: CT - Abdomen Pelvis W Contrast - 02/06/2018 4:43 am CLINICAL HISTORY: Abdominal pain with nausea. Vomiting. Left upper quadrant pain COMPARISON: November 2017 TECHNIQUE: Computed axial tomography of the abdomen pelvis was obtained. 100 cc Isovue-300 was admin istered intravenously. Oral contrast was not requested which limits evaluation of bowel. Preliminary report was generated by [employer] and reviewed prior to this dictation All CT scans are performed using dose optimization technique as appropriate and may include automated exposure control or mA/KV adjustment according to patient size. FINDINGS: The liver, pancreas, adrenal and kidneys appear unremarkable. The spleen measures 18 centimeters and is without significant change from the prior exam. Abdominal lymphadenopathy is stable. There is no evidence of diverticulitis. Fluid is present throughout nondilated large and small bowel IMPRESSION: Moderate splenomegaly without significant change from the prior exam Stable abdominal lymphadenopathy Fluid within nondilated large and small bowel may represent a gastroenteritis.
[2018-02-06 11:23] LABS: Absolute Lymphocytes (CBC) 0.4 K/uL (0.7-4.9); Absolute Monocytes 0.3 K/uL (0.1-1.3); Absolute Neutrophil 4.3 K/uL (1.8-8.0); Basophils % 0.1 % (0-1.3); Eosinophils % 0.7 % (0-4.4); Hematocrit 22.8 % (36.0-45.0); Lymphocytes % 8.7 % (15.3-44.8); MCH 30.6 pg (27.0-35.0); MCV 82.9 fL (80-100); MPV 6.8 fL (7.6-11.3); Monocytes % 5.4 % (3.3-12.3); RBC Red Blood Cell Count 2.75 M/uL (3.86-4.86)
[2018-02-06 12:28] LABS: Platelet Estimate ADEQ; Urine White Blood Cell Casts OK
[2018-02-06 12:29] LABS: Anisocytosis 1+; Blood Morphology Comment NOTED (NOT SEEN)
[2018-02-06 12:50] LABS: ALT/SGPT 16 U/L (12-78); AST/SGOT 9 U/L (15-37); Albumin 3.6 g/dL (3.4-5.0); Alkaline Phosphatase 42 U/L (45-117); BUN Blood Urea Nitrogen 11 mg/dL (7-18); Bicarbonate 26 mmol/L (21-32); Glucose Level 102 mg/dL (74-106); Phosphorus 2.8 mg/dL (2.5-4.9); Potassium 3.6 mmol/L (3.5-5.1); Protein, Total 6.4 g/dL (6.4-8.2); Sodium Level 141 mmol/L (136-145)
--- NOTE | 2018-02-06 17:36 | HP ---
Date of Admission: 02/06/2018 Reason For Admission: 1.Intractable nausea and vomiting. 2.History of hereditary spherocytosis. History Of Present Illness: This is a 27-year-old female, who comes into the hospital with intractab le nausea and vomiting. She states that she has been feeling ill and she felt really sick to her sto mach today. She has been feeling dizzy and shaky all day. She took some antiemetics with no relief, so she came to the emergency room. She has been having persistent nausea and vomiting. She was giv en Zofran and felt a little bit better, but the nausea and vomiting returns, and she had to take anot her dose of the Zofran, which did not provide her any relief. Then, she had to be given Phenergan, w hich relief some of her symptoms. She does see a b2b account executive at [facility]. She has also been teetee d that she had a mass in her stomach, which were lymph nodes; however, when they went to do a biopsy, the lymph nodes have resolved. Clinically, the patient does appear to be doing better. Her heart r ate has improved and the patient's blood pressure is stable. The patient is feeling better and is wa nting to try to eat something. If she does tolerate her diet, she should be stable for discharge. Review of Systems: A 10-point review of systems is otherwise unremarkable. Past Medical History: Hereditary spherocytosis. Past Surgical History: Tonsillectomy and adenoidectomy. She has also had a blood transfusion and an exchange transfusion as a child. Allergies: NO KNOWN DRUG ALLERGIES. Social History: She does not smoke. Drinks occasionally. Denies any drug use. Family History: Does not know her family history from her father's side. Does state that her grandm other had lymphoma and she says that she has heard that her father may have had CLL. Home Medications: Have been reviewed and are in the chart. Physical Examination: Vital Signs: Her initial vitals showed a temperature of 99, heart rate 120, respirations 20, blood p ressure was 100/70, saturating 96%. General: The patient lying in bed, comfortable, no distress. Awake, alert, oriented to person, plac e, and time. HEENT: Normocephalic, atraumatic. Pupils equal, reactive to light. Extraocular muscles intact. Neck: There is no JVP. No bruits. Oropharynx pink, moist. No lymphadenopathy. No thyromegaly. T Ms normal. Cardiovascular: Regular rate and rhythm. Tachycardic. No murmur, rubs or gallops. Lungs: Clear bilaterally. Abdomen: Soft, just mildly tender in the left upper quadrant. No rebound. No guarding. Bowel soun ds are positive. Extremities: No clubbing, no cyanosis, no edema. Neurologic: Cranial nerves 2 through 12 are intact. Motor is 5/5. Sensation intact to light touch. Skin: There is no deformity. Laboratory Data: Labs have been reviewed. Assessment: 1.The patient with intractable nausea and vomiting. 2.History of hereditary spherocytosis along with splenomegaly. 3.Anxiety. Plan: At this time, is to continue with IV hydration and antiemetics will go ahead and do a food cachorro llenge and if she is able to tolerate diet, she should be stable for discharge as long as her heart r ate and blood pressure is stable. We will continue monitoring her and now repeat her labs before noo n and if she does tolerate her lunch then I anticipate she should be able go home later today. KEV Voice ID: [id number]
--- NOTE | 2018-02-07 06:29 | DS ---
Date of Discharge: 02/06/2018 Discharge Diagnoses: 1.Intractable nausea and vomiting. 2.Abdominal pain. 3.Hereditary spherocytosis. 4.Splenomegaly. Hospital Course: The patient is a 27-year-old female who comes into the hospital with intractable na usea, vomiting, and unable to tolerate her diet. The patient was given some IV fluids for rehydratio n. She was given antiemetics, which improved her condition. The patient was then able to tolerate h er diet and did not have any further nausea or vomiting episodes. Her abdominal pain had resolved. She was able to ambulate and did not have any further symptoms. The patient was then cleared for dis charge in a stable condition. Activity: As tolerated. Medications: As per medication reconciliation list. Followup: Follow up with primary care physician in 2-3 days. Return to ER for worsening condition. Diet: Camp. Physical Examination: General: Awake, alert, oriented, in no acute distress. CV: S1, S2. No murmurs. Respiratory: Moving air well bilaterally. Abdomen: Soft, nontender, nondistended. Positive bowel sounds. Extremities: No clubbing, cyanosis, edema. Neurologic: Nonfocal. SA/MODL Voice ID: [id number] Report ID: [id number]
== END 2018-02-06 15:42 | disposition home or self-care (01) ==
LOC: ER 01:20 → ERHOLD 05:20 → 2ND 07:56
PROVIDERS: ADMIT Hospitalist; ATTEND Hospitalist
DX: R11.2 Nausea with vomiting, unspecified (principal); R10.9 Unspecified abdominal pain; D58.0 Hereditary spherocytosis; R16.1 Splenomegaly, not elsewhere classified; F41.9 Anxiety disorder, unspecified
CPT/HCPCS: 36415; 74177; 80048; 80053; 80076; 81003; 81015; 81025; 82150; 83690; 83735; 84100; 85025; 86850; 86900; 86901; 87086; 87088; 96361; 96374; 96375; 99285; G0378; J2405; J2765; J7030; Q9967

== ENCOUNTER 2018-04-16 03:28 | Emergency (ER) | payer OTHER ==
[2018-04-16] MEDS ORDERED: NA CHLORIDE 0.9% 1,000 ML ONE (03:55)
[2018-04-16] MEDS ORDERED: MORPHINE 4 MG/ML SYR ONE ×3 (03:55→09:25)
[2018-04-16] MEDS ORDERED: ONDANSETRON 4 MG/2 ML VIAL ONE ×2 (03:55→09:31)
[2018-04-16 04:24] LABS: Albumin 4.5 g/dL (3.4-5.0); Bilirubin Direct 1.1 mg/dL (0-0.2); Bilirubin Total 3.3 mg/dL (0.2-1.0); Potassium 3.5 mmol/L (3.5-5.1); Protein, Total 7.9 g/dL (6.4-8.2)
[2018-04-16 04:39] LABS: Absolute Lymphocytes (CBC) 2.7 K/uL (0.7-4.9); Absolute Monocytes 0.4 K/uL (0.1-1.3); Absolute Neutrophil 5.1 K/uL (1.8-8.0); Basophils % 0.2 % (0-1.3); Eosinophils % 4.7 % (0-4.4); Hematocrit 28.7 % (36.0-45.0); Lymphocytes % 31.4 % (15.3-44.8); MCH 30.8 pg (27.0-35.0); MCV 84.6 fL (80-100); MPV 7.3 fL (7.6-11.3); Monocytes % 4.8 % (3.3-12.3)
[2018-04-16 06:06] LABS: Anisocytosis SLIGHT; Blood Morphology Comment NOTED (NOT SEEN); Platelet Estimate ADEQ; Urine White Blood Cell Casts OK
[2018-04-16] MEDS ORDERED: KETOROLAC 30 MG/ML INJ ONE (06:27)
[2018-04-16 06:54] LABS: Urine Blood NEGATIVE (NEG); Urine Glucose NEGATIVE (NEG); Urine Protein NEGATIVE (NEG); Urine Specific Gravity 1.015 (1.005-1.030)
[2018-04-16] MEDS ORDERED: NA CHLORIDE 0.9% 2,000 ML ONE (07:51)
[2018-04-16] MEDS ORDERED: METRONIDAZOLE 500mg IVPB 500 MG/100 ML BAG IV ONE (07:59)
[2018-04-16] MEDS ORDERED: Levofloxacin500mg IV 500 MG/100 ML BAG IV ONE (07:59)
--- NOTE | 2018-04-16 09:03 | ER ---
Nurse's Notes [facility] Name: Lala Dunbar Age: 27 yrs Sex: Female : 1990 Arrival Date: 04/16/2018 Time: 03:30 Bed 5 Private MD: Diagnosis: Intractable upper abdominal pain;Cholecystitis;Cholelithiasis Presentation: 04/16 03:39 Presenting complaint: Presenting complaint: Patient states: she is having severe bb abdominal pain x 3 day with one episode of vomiting tonight. Pt is scheduled for endoscopy next Friday but the pain got too bad tonight. 03:42 Transition of care: patient was not received from another setting of care. Onset of bb symptoms was April 12, 2018. Risk Assessment: Do you want to hurt yourself or someone else? Patient reports no desire to harm self or others. Initial Sepsis Screen: Does the patient meet any 2 criteria? Does the patient have a suspected source of infection? Yes:. 03:42 Method Of Arrival: Ambulatory bb 03:42 Acuity: CHANDLER 3 bb SIX SIGMA BLACK TRAINER: 03:42 LMP 04/04/2018 bb Historical: - Allergies: 04:34 Latex, Natural Rubber; rr5 - Home Meds: 04:34 Zofran (as hydrochloride) 4 mg Oral tab [Active]; Tramadol Oral [Active]; rr5 - PMHx: 04:34 hereditary spherocytosis; enlarged spleen; rr5 - Immunization history:: Adult Immunizations up to date. - Social history:: Patient uses alcohol, occasionally. Smoking status: Patient/guardian denies using tobacco. - Ebola Screening: : No symptoms or risks identified at this time. Screenin:09 Abuse screen: Denies threats or abuse. Denies injuries from another. Nutritional rr5 screening: No deficits noted. Tuberculosis screening: No symptoms or risk factors identified. Fall Risk IV access (20 points). Total Moore Fall Scale indicates No Risk (0-24 pts). Assessment: 03:57 General: Appears uncomfortable, ill, Behavior is cooperative, crying. Pain: Complains rr5 of pain in abdomen Pain does not radiate. Pain at worst was 10 out of 10 on a pain scale. Quality of pain is described as aching, Pain began 2-3 days ago. Is intermittent. Neuro: Level of Consciousness is awake, alert, obeys commands, Oriented to person, place, time, situation, Appropriate for age. Cardiovascular: Capillary refill < 3 seconds Patient's skin is warm and dry. Respiratory: Airway is patent Respiratory effort is even, unlabored, Respiratory pattern is regular, symmetrical. GI: Abdomen is flat, Bowel sounds present X 4 quads. Guarding noted left upper quadrant Reports upper abdominal pain, vomiting, having a hereditary spherocytosis. : No signs and/or symptoms were reported regarding the genitourinary system. EENT: No signs and/or symptoms were reported regarding the EENT system. Derm: Skin is pale, mild yellowish. Musculoskeletal: No signs and/or symptoms reported regarding the musculoskeletal system. 04:30 Reassessment: Patient appears in no apparent distress at this time. Patient is alert, rr5 oriented x 3, equal unlabored respirations, skin warm/dry/pink. as verbalized she feels better now compare before. Patient states feeling better. Patient states symptoms have improved. 04:50 Reassessment:. Pain: Complains of pain in left upper quadrant abdomen Pain at worst was rr5 8 out of 10 on a pain scale. Quality of pain is described as aching, Pain began suddenly, Is continuous, Current management is with Morphine. 05:26 Reassessment: Patient appears in no apparent distress at this time. Patient states rr5 symptoms have improved. Pain: Complains of pain in left upper quadrant abdomen Pain does not radiate. Pain currently is 3 out of 10 on a pain scale. Quality of pain is described as aching, Pain began suddenly, Is intermittent. 06:15 Reassessment: Received an order from Dr Lopez to medicate patient with Toradol 30 MG ao IVP. 06:32 Reassessment: Reassessment: Patient appears in no apparent distress at this time. rr5 Patient states feeling better. Patient states symptoms have improved. 08:04 General: Appears in no apparent distress. uncomfortable, Behavior is calm, cooperative, jl7 appropriate for age. Pain: Denies pain. Neuro: Level of Consciousness is awake, alert, obeys commands, Oriented to person, place, time, situation. Cardiovascular: Patient's skin is warm and dry. Respiratory: Airway is patent Respiratory effort is even, unlabored, Respiratory pattern is regular, symmetrical. GI: Abdomen is flat, non-distended, Bowel sounds present X 4 quads. Abd is soft Abdomen is tender to palpation in left upper quadrant Reports upper abdominal pain, vomiting, pt denies pain at this time, States "The medication has helped." Instructed pt to notify nurse of any discomfort. Pt verbalized understanding. : No signs and/or symptoms were reported regarding the genitourinary system. Derm: Skin is pink, warm \\T\\ dry. 08:30 Reassessment: RECD REPORT FROM [facility]. 27YO WF P/W ABD PAIN x3 DAYS WITH LOSS OF bp APPETITE. U/S RESULTS SHOW GALLBLADDER IRREGULARITY. ADMIT IN PROCESS, ABX INFUSING. VS STABLE ON MONITOR. 09:30 Reassessment: NO GI AVAILABLE, ADMIT CANCELLED FOR TRANSFER. bp 11:33 Reassessment: REPORT TO ARCADIO RAMAN AT [facility], TRANSPORT PENDING. bp 11:48 Reassessment: [facility] AT B/S FOR TRANSFER. bp Vital Signs: 03:42 BP 143 / 83; Pulse 100 RA; Resp 20; Temp 97.5(O); Pulse Ox 100% on R/A; Weight 63.5 kg bb (R); Height 5 ft. 5 in. (165.10 cm) (R); Pain 9/10; 04:14 BP 105 / 76; Pulse 89; Resp 16; Pulse Ox 99% on R/A; rr5 05:27 BP 113 / 72; Pulse 86; Resp 17; Pulse Ox 99% ; Pain 3/10; rr5 06:42 BP 112 / 80; Pulse 75; Resp 16; Pulse Ox 99% on R/A; rr5 08:04 BP 120 / 78; Pulse 87; Resp 16 S; Temp 99(O); Pulse Ox 100% on R/A; Pain 0/10; jl7 09:00 BP 101 / 76; Pulse 85; Resp 16; Pulse Ox 100% ; bp 10:00 BP 120 / 76; Pulse 80; Resp 16; Pulse Ox 100% ; bp 11:34 BP 114 / 78; Pulse 84; Resp 16; Pulse Ox 100% ; bp 03:42 Body Mass Index 23.30 (63.50 kg, 165.10 cm) ED Course: 03:30 Patient arrived in ED. es 03:40 Nilo Lopez MD is Attending Physician. tw4 03:42 Arm band placed on Patient placed in an exam room, on a stretcher, on pulse oximetry. bb Family accompanied patient. 03:44 Morgan Moy, RN is Primary Nurse. rr5 03:45 Triage completed. bb 03:46 Inserted saline lock: 20 gauge in right antecubital area, using aseptic technique. ea Blood collected. 04:09 Patient has correct armband on for positive identification. Bed in low position. Call rr5 light in reach. Side rails up X 1. Adult w/ patient. 04:09 Pulse ox on. NIBP on. Door closed. Noise minimized. Lights dimmed. rr5 05:07 CT Abd/Pelvis - W/Contrast In Process Unspecified. EDMS 07:10 Report given to celeste RAMAN. rr5 07:19 US Abdomen Limited In Process Unspecified. EDMS 07:41 Xavier Medina PA is PHCP. jr8 08:09 Primary Nurse role handed off by Morgan Moy RN jl7 08:09 Zhen Powell, DANISHA is Primary Nurse. jl7 08:52 Primary Nurse role handed off by Zhen Powell RN bp 08:52 Andriy Rose, DANISHA is Primary Nurse. bp 09:00 Satya Garza MD is Hospitalizing Provider. jr8 09:21 Surgeon paged at 09:21 Dr. Garza distribution a class lineman. eb 09:35 Surgeon returned call at 09:35. eb 11:33 No provider procedures requiring assistance completed. Patient transferred, IV remains bp in place. Administered Medications: 03:50 Drug: Zofran 4 mg Route: IVP; Site: right antecubital; rr5 04:30 Follow up: Response: No adverse reaction; Marked relief of symptoms; Nausea is decreasedrr5 06:39 Follow up: Response: No adverse reaction rr5 03:50 Drug: NS 0.9% 1000 ml Route: IV; Rate: 1 bolus; Site: right antecubital; rr5 04:49 Follow up: Response: No adverse reaction; IV Status: Completed infusion; IV Intake: rr5 1000ml 05:00 Follow up: IV Status: Completed infusion; IV Intake: 1000ml rr5 06:40 Follow up: Response: No adverse reaction rr5 03:52 Drug: morphine 4 mg {Note: bp 116/73.} Route: IVP; Site: right antecubital; rr5 04:30 Follow up: Response: No adverse reaction; Marked relief of symptoms rr5 06:39 Follow up: Response: No adverse reaction rr5 04:50 Drug: morphine 4 mg Route: IVP; Site: right antecubital; rr5 06:39 Follow up: Response: No adverse reaction rr5 06:15 Drug: TORadol 30 mg Route: IVP; Site: right antecubital; ao 07:01 Follow up: Response: No adverse reaction rr5 08:00 Drug: LevaQUIN 500 mg Volume: 100 ml; Route: IVPB; Infused Over: 60 mins; Site: right jl7 antecubital; 08:30 Drug: Flagyl 500 mg Volume: 100 ml; Route: IVPB; Rate: 200 ml/hr; Infused Over: 30 jl7 mins; Site: right antecubital; 09:15 Drug: morphine 4 mg Route: IVP; Site: right antecubital; bp 09:27 Drug: Zofran 4 mg Route: IVP; Site: right antecubital; bp Intake: 04:49 IV: 1000ml; Total: 1000ml. rr5 05:00 IV: 1000ml; Total: 2000ml. rr5 Outcome: 09:01 Decision to Hospitalize by Provider. jr8 10:45 ER care complete, transfer ordered by MD. jr8 11:49 Patient left the ED. bp Signatures: Dispatcher [employer] Brenda Rocha Brenda RN RN Xavier Garza PA PA jr8 Chad Braxton, RN Zhen Ascencio RN RN jl7 Xuan Clarke RN Andriy Bar ea RN Nilo Cano MD MD tw4 Luisa Key Raymond RN RN rr5 Corrections: (The following items were deleted from the chart) 03:45 03:39 Presenting complaint: bb bb 06:41 06:32 Reassessment: rr5 rr5
--- NOTE | 2018-04-16 09:03 | EDPHYS ---
Physician Documentation [facility] Name: Lala Dunbar Age: 27 yrs Sex: Female : 1990 Arrival Date: 04/16/2018 Time: 03:30 Bed 5 Private MD: ED Physician Nilo Lopez HPI: 04/16 03:50 This 27 yrs old Female presents to ER via Ambulatory with complaints of tw4 Abdominal Pain. 03:50 The patient presents with abdominal pain in the upper abdomen. Onset: The tw4 symptoms/episode began/occurred 3 day(s) ago. The symptoms radiate to left back. Associated signs and symptoms: Pertinent positives: nausea, vomiting, and diarrhea, nausea and vomiting, Pertinent negatives: anorexia, blood in stools, chest pain, constipation, diarrhea, dysuria, fever, headache, hematuria. Modifying factors: The symptoms are alleviated by nothing, the symptoms are aggravated by. The patient has not experienced similar symptoms in the past. 04:19 The symptoms are described as dull. 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 - Social history:: Patient uses alcohol, occasionally. Smoking status: Patient/guardian denies using tobacco. - Ebola Screening: : No symptoms or risks identified at this time. ROS: 04:19 Constitutional: Negative for fever, chills, and weight loss, Cardiovascular: Negative tw4 for chest pain, palpitations, and edema, Respiratory: Negative for shortness of breath, cough, wheezing, and pleuritic chest pain, Abdomen/GI: Negative for abdominal pain, nausea, vomiting, diarrhea, and constipation, MS/Extremity: Negative for injury and deformity. Exam: 04:19 Constitutional: This is a well developed, well nourished patient who is awake, alert, tw4 and in no acute distress. Head/Face: Normocephalic, atraumatic. Chest/axilla: Normal chest wall appearance and motion. Nontender with no deformity. No lesions are appreciated. Cardiovascular: Regular rate and rhythm with a normal S1 and S2. No gallops, murmurs, or rubs. Normal PMI, no JVD. No pulse deficits. Respiratory: Lungs have equal breath sounds bilaterally, clear to auscultation and percussion. No rales, rhonchi or wheezes noted. No increased work of breathing, no retractions or nasal flaring. Back: No spinal tenderness. No costovertebral tenderness. Full range of motion. 04:19 MS/ Extremity: Pulses equal, no cyanosis. Neurovascular intact. Full, normal range of motion. Neuro: Awake and alert, GCS 15, oriented to person, place, time, and situation. Cranial nerves II-XII grossly intact. Motor strength 5/5 in all extremities. Sensory grossly intact. Cerebellar exam normal. Normal gait. 04:19 Abdomen/GI: Inspection: abdomen appears normal, Bowel sounds: normal, Palpation: moderate abdominal tenderness, in the left upper quadrant. Vital Signs: 03:42 BP 143 / 83; Pulse 100 RA; Resp 20; Temp 97.5(O); Pulse Ox 100% on R/A; Weight 63.5 kg bb (R); Height 5 ft. 5 in. (165.10 cm) (R); Pain 9/10; 04:14 BP 105 / 76; Pulse 89; Resp 16; Pulse Ox 99% on R/A; rr5 05:27 BP 113 / 72; Pulse 86; Resp 17; Pulse Ox 99% ; Pain 3/10; rr5 06:42 BP 112 / 80; Pulse 75; Resp 16; Pulse Ox 99% on R/A; rr5 08:04 BP 120 / 78; Pulse 87; Resp 16 S; Temp 99(O); Pulse Ox 100% on R/A; Pain 0/10; jl7 09:00 BP 101 / 76; Pulse 85; Resp 16; Pulse Ox 100% ; bp 10:00 BP 120 / 76; Pulse 80; Resp 16; Pulse Ox 100% ; bp 11:34 BP 114 / 78; Pulse 84; Resp 16; Pulse Ox 100% ; bp 03:42 Body Mass Index 23.30 (63.50 kg, 165.10 cm) MDM: 04:18 Patient medically screened. tw4 07:38 Differential diagnosis: bowel obstruction, gastritis, Peptic Ulcer Disease, Perf. tw4 Duodenal Ulcer, Perf. Gastric Ulcer. Data reviewed: vital signs, nurses notes. Data interpreted: Pulse oximetry: Interpretation: normal. Counseling: I had a detailed discussion with the patient and/or guardian regarding: the historical points, exam findings, and any diagnostic results supporting the discharge/admit diagnosis. 08:37 Data reviewed: lab test result(s), radiologic studies, CT scan, ultrasound. [facility] 09:41 ED course: Dr. Garza consulted and wants transfer due to her condition and NO GI on [facility] board . 10:11 ED course: Discussed case with Dr. Erickson who is hospitalist medicine at [address] Explained to him that we do not have ERCP, MRCP, or GI today. With her continued pain and past medical history. Needs GI and Surgery consult for for possible cholecystectomy. He accepted patient and is trying to get a hold of patients private GI there who has [facility] privileges. . ED course: [facility] called back and GI accepted but will only accept at [facility]. Attempting transfer there now . 10:44 ED course: [facility] accepted for transfer. [facility] 04/16 03:41 Order name: Basic Metabolic Panel; Complete Time: 04:49 [facility] 04/16 04:49 Interpretation: CL 108; GLUC 130; GFR 87. [facility] 04/16 03:41 Order name: CBC with Diff; Complete Time: 08:27 [facility] 04/16 04:49 Interpretation: RBC 3.40; HGB 10.4; MCHC 36.3; RDW 20.5; MPV 7.3; EOSINOPHIL % 4.7. [facility] 04/16 03:41 Order name: Creatinine for Radiology; Complete Time: 04:49 [facility] 04/16 03:41 Order name: Hepatic Function; Complete Time: 04:49 [facility] 04/16 04:49 Interpretation: Normal except: BILIT 3.3; BILID 1.1. [facility] 04/16 03:41 Order name: Lipase; Complete Time: 08:27 [facility] 04/16 04:42 Order name: CBC Smear Scan; Complete Time: 08:27 [facility] 04/16 03:41 Order name: CT Abd/Pelvis - W/Contrast [facility] 04/16 04:45 Order name: Urine Dipstick--Ancillary (enter results); Complete Time: 08:27 sc 04/16 04:45 Order name: Urine --Ancillary (enter results); Complete Time: 08:27 mt 04/16 06:59 Order name: US Abdomen Limited; Complete Time: 11:02 tw4 04/16 03:41 Order name: IV Saline Lock; Complete Time: 03:46 tw4 04/16 03:41 Order name: Labs collected and sent; Complete Time: 03:55 tw4 04/16 04:32 Order name: Urine Test (obtain specimen); Complete Time: 04:48 ea Administered Medications: 03:50 Drug: Zofran 4 mg Route: IVP; Site: right antecubital; rr5 04:30 Follow up: Response: No adverse reaction; Marked relief of symptoms; Nausea is decreasedrr5 06:39 Follow up: Response: No adverse reaction rr5 03:50 Drug: NS 0.9% 1000 ml Route: IV; Rate: 1 bolus; Site: right antecubital; rr5 04:49 Follow up: Response: No adverse reaction; IV Status: Completed infusion; IV Intake: rr5 1000ml 05:00 Follow up: IV Status: Completed infusion; IV Intake: 1000ml rr5 06:40 Follow up: Response: No adverse reaction rr5 03:52 Drug: morphine 4 mg {Note: bp 116/73.} Route: IVP; Site: right antecubital; rr5 04:30 Follow up: Response: No adverse reaction; Marked relief of symptoms rr5 06:39 Follow up: Response: No adverse reaction rr5 04:50 Drug: morphine 4 mg Route: IVP; Site: right antecubital; rr5 06:39 Follow up: Response: No adverse reaction rr5 06:15 Drug: TORadol 30 mg Route: IVP; Site: right antecubital; ao 07:01 Follow up: Response: No adverse reaction rr5 08:00 Drug: LevaQUIN 500 mg Volume: 100 ml; Route: IVPB; Infused Over: 60 mins; Site: right jl7 antecubital; 08:30 Drug: Flagyl 500 mg Volume: 100 ml; Route: IVPB; Rate: 200 ml/hr; Infused Over: 30 jl7 mins; Site: right antecubital; 09:15 Drug: morphine 4 mg Route: IVP; Site: right antecubital; bp 09:27 Drug: Zofran 4 mg Route: IVP; Site: right antecubital; bp Disposition: 04/16/18 10:45 Transfer ordered to Other Acute Care Facility. Diagnosis are Intractable upper abdominal pain, Cholecystitis, Cholelithiasis. - Reason for transfer: Higher level of care. - Accepting physician is Dr. Kyle. - Condition is Stable. - Problem is new. - Symptoms have improved. Signatures: Dispatcher [employer] EDMS Leona Hubbard, RN RN Xavier Garza PA PA jr8 Chad Braxton, RN RN Kareem Nettles, RN RN jl7 Xuan Clarke, RN RN ea Andriy Rose, RN RN Nilo Brandon MD MD tw4 Morgan Moy RN RN rr5 Corrections: (The following items were deleted from the chart) 09:40 09:01 Hospitalization Ordered by Satya Garza MD for Inpatient Admission. Preliminary jr8 diagnosis is Upper abdominal pain, unspecified; Cholecystitis. Bed requested for Telemetry/MedSurg (Inpatient). Status is Inpatient Admission. Condition is Stable. Problem is new. Symptoms have improved. UTI on Admission? No. jr8 11:05 10:45 04/16/2018 10:45 Transfer ordered to Other Acute Care Facility. Diagnosis is jr8 Intractable upper abdominal pain; Cholecystitis. Reason for transfer: Higher level of care. Accepting physician is Bayron Mccabe. Condition is Stable. Problem is new. Symptoms have improved. jr8 11:49 11:05 04/16/2018 10:45 Transfer ordered to Other Acute Care Facility. Diagnosis is bp Intractable upper abdominal pain; Cholecystitis; Cholelithiasis. Reason for transfer: Higher level of care. Accepting physician is Dr. Kyle. Condition is Stable. Problem is new. Symptoms have improved. jr8
--- NOTE | 2018-04-16 10:55 | RAD REPORT ---
EXAM DESCRIPTION: US - Abdomen Exam Limited - 04/16/2018 7:19 am CLINICAL HISTORY: r/o cholecysitis;Abd pain COMPARISON: Abdomen Pelvis W Contrast dated 04/16/2018 FINDINGS: The gallbladder demonstrates sludge and small stones. No pericholecystic fluid or gallblad leela wall thickening. The common bile duct is normal measuring 3 mm. The liver demonstrates no findings of intrahepatic biliary dilatation. IMPRESSION: Small gallstones and gall sludge noted. No finding to indicate acute cholecystitis.
[2018-04-16] MEDS ORDERED: PROMETHAZINE 25 MG/ML VIAL ONE (11:32)
--- NOTE | 2018-04-16 11:53 | RAD REPORT ---
EXAM DESCRIPTION: CTAbdomen Pelvis W Contrast - 04/16/2018 6:37 am CLINICAL HISTORY: Abdominal pain. ABD PAIN COMPARISON: Abdomen Pelvis W Contrast dated 02/06/2018; Abdomen Pelvis W Contrast dated 10/30/2017 TECHNIQUE: Biphasic CT imaging of the abdomen and pelvis was performed with 100 ml non-ionic IV cont rast. All CT scans are performed using dose optimization technique as appropriate and may include automated exposure control or mA/KV adjustment according to patient size. FINDINGS: The lung bases are clear. The liver appears enlarged in size measuring 19 cm. The gallbladder appears mildly prominent. The spl een is enlarged in size measuring 17 cm. The pancreas, adrenal glands kidneys are within normal limit s. No bowel obstruction, free air, intra-abdominal free fluid or abscess. Significant fecal retention in the colon is seen. The appendix is normal. No evidence of significant lymphadenopathy. No suspicious bony findings. Mild pelvic free fluid. IMPRESSION: Moderate hepatosplenomegaly. Mild nonspecific gallbladder distension. Significant fecal retention in the colon. Mild pelvic free fluid.
--- NOTE | 2018-04-16 14:19 | P.CNS ---
Date of Consult: 04/16/18 Reason for Consult: Abdominal pain, pending transfer Chief Complaint: Abdominal pain, nausea, vomiting History of Present Illness: 27-year-old female with abdominal pain radiating to back x3 days, progressively worsening. Associated with nausea, vomiting and diarrhea. CT abdomen with hepatosplenomegaly Abdominal ultrasound gallstones and gall bladder sludging. Allergies Latex, Natural Rubber Allergy (Verified 10/30/17 03:16) Rash Home Medications: Ondansetron [Zofran (Odt)*] 4 mg PO Q6H PRN #20 tab 02/06/18 - Past Medical/Surgical History Diabetic: No -: Hereditary Spherocytosis -: Adenoidectomy - Family History Mother Notes: mom is healthy - Social History Alcohol use: Yes CD- Drugs: No Caffeine use: Yes Review of Systems As noted Physical Examination Temp Pulse Resp BP Pulse Ox 99 F 84 16 114/78 04/16/18 08:04 04/16/18 11:34 04/16/18 11:34 04/16/18 11:34 General: Alert, Moderate distress HEENT: Atraumatic, PERRLA, Mucous membr. moist/pink, EOMI, Sclerae nonicteric Neck: Supple, 2+ carotid pulse no bruit, No LAD, Without JVD or thyroid abnormality Respiratory: Clear to auscultation bilaterally, Normal air movement Cardiovascular: Regular rate/rhythm, Normal S1 S2 Gastrointestinal: Tenderness Musculoskeletal: No tenderness Integumentary: No rashes Neurological: Normal gait, Normal speech, Normal tone, Normal affect Lymphatics: No axilla or inguinal lymphadenopathy Laboratory Data (last 24 hrs) 04/16/18 03:45: Creatinine 0.70 04/16/18 03:45: WBC 8.7, Hgb 10.4 L, Hct 28.7 L, Plt Count 311 04/16/18 03:45: Sodium 139, Potassium 3.5, BUN 9, Creatinine 0.80, Glucose 130 H , Total Bilirubin 3.3 H, AST 27, ALT 27, Alkaline Phosphatase 65, Lipase 203 Conclusions/Impression: General surgery he was consulted. The patient was transferred to [facility] as there is no GI available here today. She likely needs ERCP, MRCP and surgery for possible cholecystectomy.
== END 2018-04-16 11:49 ==
LOC: ER 03:28
DX: K80.10 Calculus of gallbladder with chronic cholecystitis without obstruction (principal); Z91.040 Latex allergy status; Z91.048 Other nonmedicinal substance allergy status
CPT/HCPCS: 36415; 74177; 76705; 80048; 80076; 81003; 81025; 83690; 85025; 96361; 96374; 96375; 99284; J2405; J2550; J7030; Q9967